=== PATIENT | male | born 1985 | race Caucasian/White ===

== ENCOUNTER 2018-05-15 08:16 | Outpatient (REF) | payer OTHER, SELFPAY ==
[2018-05-15 13:15] LABS: Cholesterol 215 mg/dL (50-200); Glucose 92 mg/dL (70-100); HDL Cholesterol 71 mg/dL (40-60); LDL CHOLESTEROL 127 mg/dL (<100); Triglyceride 50 mg/dL (30-150)
== END 2018-05-15 08:36 ==
LOC: NCHCN 08:16
PROVIDERS: PCP Nurse Practitioner; Visit Provider Nurse Practitioner
DX: Z13.1 Encounter for screening for diabetes mellitus (principal); Z13.220 Encounter for screening for lipoid disorders
CPT/HCPCS: 80061; 82947; 83721

== ENCOUNTER 2025-04-21 13:45 | Outpatient (REF) | payer OTHER, SELFPAY ==
[2025-04-21 15:40] LABS: HCT 45.1 % (40.0-50.0); HGB 15.2 g/dL (13.5-17.5); MCH 32.9 pg (27.0-33.0); MCHC 33.7 % (32.0-36.0); MCV 98 fL (80-95); MPV 10.0 fL (8.0-11.0); Platelet Count 201 10^3/uL (130-400); RBC 4.62 10^6/uL (4.36-5.78); RDW 12.0 % (11.8-14.1); RDW-SD 43.0 fL; WBC 2.77 10^3/uL (4.4-10.8)
[2025-04-21 16:29] LABS: ALT 48 U/L (10-49); AST 46 U/L (<34); Albumin 4.6 g/dL (3.2-5.0); Alkaline Phosphatase 45 U/L (46-116); Anion Gap 8.6 mmol/L (3-11); BUN 15 mg/dL (9-23); Bilirubin, Total 1.30 mg/dL (0.2-1.2); CO2 29.4 mmol/L (20.0-31.0); Calcium 9.3 mg/dL (8.3-10.6); Chloride 103 mmol/L (98-107); Cholesterol 193 mg/dL (<200); Glucose 89 mg/dL (74-106); HDL Cholesterol 78 mg/dL (>40); Potassium 4.4 mmol/L (3.5-5.1); Sodium 141 mmol/L (136-145); Total Protein 7.2 g/dL (5.7-8.2)
== END 2025-04-21 13:46 | disposition home or self-care (01) ==
LOC: NCHCN 13:45
PROVIDERS: PCP Nurse Practitioner Family; Visit Provider Nurse Practitioner Family
DX: Z00.00 Encounter for general adult medical examination without abnormal findings (principal)
CPT/HCPCS: 80053; 80061; 85027